=== PATIENT | male | born 1955 | race Caucasian/White ===

== ENCOUNTER 2017-07-14 19:01 | Emergency (ER) | payer OTHER ==
--- NOTE | 2017-07-14 19:31 | EDM.PDOC ---
ED HPI GENERAL MEDICAL PROBLEM - General Chief Complaint: Lower Extremity Injury/Pain Stated Complaint: POSS FOOT INJURY Time Seen by Provider: 07/14/17 19:14 Source of Information: Reports: Patient, Family () History Limitations: Reports: No Limitations - History of Present Illness INITIAL COMMENTS - FREE TEXT/NARRATIVE: The patient states that he dropped a heavy jake onto the medial aspect of his distal right tibia around 15:30 today, while at work. He was wearing work boots at the time, but sustained an abrasion to that area. He states that he applied ice to the area once he got home, but after resting it for about an hour, he found it very painful to bear weight. No prior injury to that area. The patient's PCP is Dr. Robbie Fishman. 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: 1000mg tylneol Right Ankle Pain Score (Numeric/FACES): 9 - Related Data Allergies Allergy/AdvReac Type Severity Reaction Status Date / Time No Known Allergies Allergy Verified 07/14/17 19:12 Home Meds: Home Meds Aspirin 81 mg PO DAILY 07/14/17 [History] Hydrochlorothiazide 12.5 mg PO DAILY 07/14/17 [History] Metoprolol Succinate 25 mg PO BID 07/14/17 [History] Multivitamin [Multivitamins] 1 cap PO DAILY 07/14/17 [History] Past Medical History Cardiovascular History: Reports: Hypertension Neurological History: Reports: Migraines - Past Surgical History HEENT Surgical History: Reports: Tonsillectomy GI Surgical History: Reports: Hernia, Inguinal (right) Social & Family History - Family History Family Medical History: Noncontributory - Tobacco Use Smoking Status *Q: Never Smoker Second Hand Smoke Exposure: No - Caffeine Use Caffeine Use: Reports: Coffee Other Caffeine Use: decaf occassionaly - Alcohol Use Alcohol Use History: Yes Alcohol Use Frequency: Socially - Recreational Drug Use Recreational Drug Use: No - Living Situation & Occupation Living situation: Reports: , with Spouse Occupation: Employed ([employer]) Review of Systems - Review of Systems Review Of Systems: ROS reveals no pertinent complaints other than HPI. ED EXAM, GENERAL - Physical Exam Exam: See Below Exam Limited By: No Limitations General Appearance: Alert, WD/WN, No Apparent Distress Extremities: Other (There is an abrasion measuring approximately 6 cm in diameter to the medial aspect of the distal right tibia. No associated erythema or ecchymosis. No apparent bony injury. Neurovascular status of the right lower extremity is intact.) Course - Vital Signs Last Recorded V/S: Last Vital Signs Temp 36.6 C 07/14/17 19:14 Pulse 63 07/14/17 19:14 Resp 18 07/14/17 19:14 BP 145/78 H 07/14/17 19:14 Pulse Ox 96 07/14/17 19:14 - Orders/Labs/Meds Orders: Active Orders 24 hr Category Date Time Status Tibia Fibula Rt [CR] Stat Exams 07/14/17 19:28 Taken - Re-Assessments/Exams Free Text/Narrative Re-Assessment/Exam: 07/14/17 19:45 2-view radiographs of the right tibia/fibula appear to be normal. No fracture or other visible bony injury seen. Formal read per the Radiologist pending. 07/14/17 19:47 X-ray results discussed with the patient and his . The patient is satisfied - he was just worried that there may have been a bony injury. I'm recommending that he apply a thick Band-Aid as padding if he is going to wear his boots. I recommended [id number] ibuprofen. The patient declined an offer for some here. Departure - Departure Time of Disposition: 19:48 Disposition: Home, Self-Care 01 Condition: Good Clinical Impression: Abrasion of right leg - Discharge Information Referrals: Robbie Fishman Jr, MD [Primary Care Provider] - Forms: ED Department Discharge Additional Instructions: You were seen in the emergency room after a jake struck the distal part of your right krishnan. Workup in the ER included x-rays of your tibia and fibula, which were normal. No bony injuries, fractures, or chips were seen. While it may be sore, you may bear weight on your right lower extremity. Take vsur-gea-guftina ibuprofen as needed for discomfort. Consider applying a thick Band-Aid to the area as padding if you are wearing your boots. If any other problems, please do not hesitate to return to the ER. - My Orders Last 24 Hours: My Active Orders 07/14/17 19:28 Tibia Fibula Rt [CR] Stat - Assessment/Plan Last 24 Hours: My Active Orders 07/14/17 19:28 Tibia Fibula Rt [CR] Stat
--- NOTE | 2017-07-15 07:04 | CR ---
Right tibia and fibula: Two views of the right tibia and fibula were obtained. Comparison: No prior study. No fracture or other bony abnormality is seen. Impression: 1. No abnormality is seen within the tibia or fibula. Diagnostic code #1
== END 2017-07-14 20:15 | disposition home or self-care (01) ==
LOC: JD.ED 19:01
DX: S80.811A Abrasion, right lower leg, initial encounter (principal); I10 Essential (primary) hypertension; Z79.899 Other long term (current) drug therapy; W20.8XXA Other cause of strike by thrown, projected or falling object, initial encounter
CPT/HCPCS: 73590-26-RT; 73590-RT; 99282; 99283

== ENCOUNTER 2021-01-15 14:42 | Emergency (ER) | payer BC, OTHER ==
[2021-01-15] MEDS ORDERED: Sodium Chloride 0.9% 10 ML Syringe FLUSH PRN (15:03)
[2021-01-15] MEDS ORDERED: Famotidine 20 MG/2 ML SDV IVPUSH ONE (15:03)
[2021-01-15] MEDS ORDERED: Alum Hydrox/Mag Hydrox/Simeth 30 ML, Lidocaine 2% 15 ML PO ONE ×2 (15:04)
--- NOTE | 2021-01-15 15:09 | EDM.PDOC ---
ED HPI GENERAL MEDICAL PROBLEM - General Chief Complaint: Abdominal Pain Stated Complaint: 1455 Time Seen by Provider: 01/15/21 14:50 Source of Information: Reports: Patient, RN Notes Reviewed History Limitations: Reports: No Limitations - History of Present Illness INITIAL COMMENTS - FREE TEXT/NARRATIVE: Patient is a 65-year-old male presenting to the emergency department with complaints of epigastric pain for the last 4 days. Symptoms began on Wednesday. Reports they improved yesterday morning, however by evening they had returned. He describes that pain as a "knot" in his stomach. He denies any vomiting or diarrhea, but states he does have occasional nausea. Denies acid reflux. He has not been eating much, however states when he did eat yesterday, he feels it made the pain worse. He has had pain similar to this approximately 1 month ago which he states lasted approximately 2 days and then resolved independently. Denies any previous abdominal surgeries. Does still have his gallbladder. He has had no fever, but states he does occasionally get chilled. Reports regular bowel movements. He has tried [id number] Gaviscon and Nexium without relief. Middle Abdomen Pain Score (Numeric/FACES): 9 - Related Data Allergies Allergy/AdvReac Type Severity Reaction Status Date / Time No Known Allergies Allergy Verified 01/15/21 14:52 Home Meds: Home Meds Aspirin [Aspirin EC] 81 mg PO DAILY 01/15/21 [History] Chlorthalidone 25 mg PO DAILY 01/15/21 [History] Metoprolol Succinate 50 mg PO DAILY 01/15/21 [History] Multivitamin 1 each PO DAILY 01/15/21 [History] Pantoprazole Sodium [Protonix] 40 mg PO DAILY #30 tablet. 01/15/21 [Rx] Sucralfate [Carafate] 1 gm PO ACBED 10 Days #40 tab 01/15/21 [Rx] Past Medical History Cardiovascular History: Reports: Hypertension Neurological History: Reports: Migraines - Past Surgical History HEENT Surgical History: Reports: Tonsillectomy GI Surgical History: Reports: Hernia, Inguinal Male Surgical History: Reports: Vasectomy Social & Family History - Family History Family Medical History: No Pertinent Family History - Tobacco Use Tobacco Use Status *Q: Never Tobacco User - Caffeine Use Caffeine Use: Reports: Coffee Other Caffeine Use: decaf occassionaly - Recreational Drug Use Recreational Drug Use: No - Living Situation & Occupation Living situation: Reports: , with Spouse Occupation: Employed ([employer] ED ROS GENERAL - Review of Systems Review Of Systems: Comprehensive ROS is negative, except as noted in HPI. ED EXAM, GI/ABD - Physical Exam Exam: See Below General Appearance: Alert, WD/WN, No Apparent Distress Respiratory/Chest: No Respiratory Distress, Lungs Clear, Normal Breath Sounds, No Accessory Muscle Use, Chest Non-Tender Cardiovascular: Normal Peripheral Pulses, Regular Rate, Rhythm, No Edema, No Gallop, No JVD, No Murmur, No Rub GI/Abdominal Exam: Normal Bowel Sounds, Soft, No Organomegaly, No Distention, No Abnormal Bruit, No Mass, Pelvis Stable, Tender (epigastric) Neurological: Alert, Oriented, CN II-XII Intact, Normal Cognition, Normal Gait, Normal Reflexes, No Motor/Sensory Deficits Psychiatric: Normal Affect, Normal Mood Skin Exam: Warm, Dry, Intact, Normal Color, No Rash #1 Interpretation EKG Date: 01/15/21 Time: 15:34 Rhythm: NSR Rate (Beats/Min): 60 [place]: Normal P-Wave: Present QRS: RBBB ST-T: Normal QT: Normal Course - Vital Signs Last Recorded V/S: Last Vital Signs Temp 98.2 F 01/15/21 18:20 Pulse 70 01/15/21 18:20 Resp 16 01/15/21 18:20 BP 165/92 H 01/15/21 18:20 Pulse Ox 92 L 01/15/21 18:20 - Orders/Labs/Meds Orders: Active Orders 24 hr Category Date Time Status Peripheral IV Insertion Adult [OM.PC] Stat Oth 01/15/21 15:01 Ordered Labs: Laboratory Tests 01/15/21 01/15/21 Range/Units 15:55 15:55 WBC 11.56 H (4.23-9.07) K/mm3 RBC 5.18 (4.63-6.08) M/mm3 Hgb 15.8 (13.7-17.5) gm/dl Hct 45.7 (40.1-51.0) % MCV 88.2 (79.0-92.2) fl MCH 30.5 (25.7-32.2) pg MCHC 34.6 (32.2-35.5) g/dl RDW Std Deviation 41.3 (35.1-43.9) fL Plt Count 252 (163-337) K/mm3 MPV 10.5 (9.4-12.3) fl Neut % (Auto) 76.1 H (34.0-67.9) % Lymph % (Auto) 11.2 L (21.8-53.1) % [place] % (Auto) 11.3 (5.3-12.2) % Eos % (Auto) 0.9 (0.8-7.0) Baso % (Auto) 0.3 (0.1-1.2) % Neut # (Auto) 8.81 H (1.78-5.38) K/mm3 Lymph # (Auto) 1.29 L (1.32-3.57) K/mm3 [place] # (Auto) 1.31 H (0.30-0.82) K/mm3 Eos # (Auto) 0.10 (0.04-0.54) K/mm3 Baso # (Auto) 0.03 (0.01-0.08) K/mm3 Sodium 137 (136-145) mEq/L Potassium 3.1 L (3.5-5.1) mEq/L Chloride 99 (98-107) mEq/L Carbon Dioxide 26 (21-32) mEq/L Anion Gap 15.1 H (5-15) BUN 13 (7-18) mg/dL Creatinine 1.0 (0.7-1.3) mg/dL Est Cr Clr Drug Dosing 76.04 mL/min Estimated GFR (MDRD) > 60 (>60) mL/min BUN/Creatinine Ratio 13.0 L (14-18) Glucose 111 H (70-99) mg/dL Calcium 9.4 (8.5-10.1) mg/dL Total Bilirubin 1.2 H (0.2-1.0) mg/dL AST 20 (15-37) U/L ALT 21 (16-63) U/L Alkaline Phosphatase 63 (46-116) U/L Troponin I < 0.017 (0.00-0.056) ng/mL C-Reactive Protein 0.9 (<1.0) mg/dL Total Protein 8.4 H (6.4-8.2) g/dl Albumin 4.4 (3.4-5.0) g/dl Globulin 4.0 gm/dL Albumin/Globulin Ratio 1.1 (1-2) Lipase 96 (73-393) U/L Meds: Medications Discontinued Medications Generic Name Dose Route Start Last Admin Trade Name Freq PRN Reason Stop Dose Admin Al Hydroxide/Mg Hydroxide 30 0 ml 01/15/21 15:04 01/15/21 15:46 ml/ Lidocaine HCl 15 ml PO 01/15/21 15:05 45 ml ONETIME ONE Administration Famotidine 20 mg 01/15/21 15:03 01/15/21 15:48 Famotidine 20 Mg/2 Ml Sdv IVPUSH 01/15/21 15:04 20 mg ONETIME ONE Administration Hydromorphone HCl 0.5 mg 01/15/21 16:11 01/15/21 16:21 Hydromorphone 0.5 Mg/0.5 Ml Syringe IVPUSH 01/15/21 16:12 0.5 mg ONETIME ONE Administration Sodium Chloride 100 mls @ 60 mls/hr 01/15/21 17:00 Normal Saline IV ASDIRECTED RACHEL Iopamidol 100 ml 01/15/21 16:56 01/15/21 17:26 Iopamidol 755 Mg/Ml 100 Ml Bottle IVPUSH 01/15/21 16:57 100 ml ONETIME ONE Administration Iopamidol 50 ml 01/15/21 16:56 01/15/21 17:26 Iopamidol 755 Mg/Ml 50 Ml Bottle IVPUSH 01/15/21 16:57 25 ml ONETIME ONE Administration Ondansetron HCl 4 mg 01/15/21 16:11 01/15/21 16:21 Ondansetron 4 Mg/2 Ml Sdv IVPUSH 01/15/21 16:12 4 mg ONETIME ONE Administration Pantoprazole Sodium 40 mg 01/15/21 16:11 01/15/21 16:21 Pantoprazole 40 Mg Vial IVPUSH 01/15/21 16:12 40 mg ONETIME ONE Administration Sodium Chloride 10 ml 01/15/21 15:03 01/15/21 16:21 Sodium Chloride 0.9% 10 Ml Syringe FLUSH 10 ml ASDIRECTED PRN Administration Keep Vein Open Sodium Chloride 10 ml 01/15/21 16:56 01/15/21 17:27 Sodium Chloride 0.9% 10 Ml Syringe FLUSH 01/15/21 16:57 10 ml ONETIME ONE Administration Sucralfate 1 gm 01/15/21 16:48 01/15/21 17:33 Sucralfate 1 Gm Tab PO 01/15/21 16:49 1 gm ONETIME ONE Administration - Re-Assessments/Exams Free Text/Narrative Re-Assessment/Exam: Patient is a 65-year-old male presenting to the emergency department complaints of 4-day history of epigastric pain. Symptoms had improved significantly yesterday, however by evening have returned. He describes a "knot "in his epigastrium. He has not had much of an appetite. On exam, he has localized tenderness to the epigastrium. It does not radiate. We have ordered blood work, EKG, chest x-ray, abdomen 2 view. We will give GI cocktail and Pepcid. 01/15/21 16:15 Patient still having pain after the Pepcid and GI cocktail. I have ordered Dilaudid, Zofran, and Protonix. Hematology results are pending. EKG shows no evidence of ischemia. Chest x-ray and abdomen x-ray showed no acute abnormalities. 01/15/21 16:48 Hematology significant for WBC minimally elevate 11.56, potassium 3.1, anion gap 15.1, total bili 1.2. Troponin is undetectably low. Lipase is normal. Patient is feeling much better after the medications given. Results discussed with patient. During conversation he did bring up that his father had a AAA at about his age. My suspicion for this is low, however given the family history, we will complete a CT chest abdomen pelvis with IV contrast only to assess the aorta. 01/15/21 16:52 CT scan of the abdomen pelvis shows no acute abnormalities. Results discussed with patient. Discussed that he is likely suffering from gastritis. He will be started on Carafate and Protonix. Recommend contacting his primary care provider's office tomorrow morning to set up follow-up. Discussed return precautions. Discharge instructions as documented. Departure - Departure Time of Disposition: 18:02 Disposition: Home, Self-Care 01 Condition: Good Clinical Impression: Abdominal pain Qualifiers: Abdominal location: epigastric Qualified Code(s): R10.13 - Epigastric pain - Discharge Information *PRESCRIPTION DRUG MONITORING PROGRAM REVIEWED*: No *COPY OF PRESCRIPTION DRUG MONITORING REPORT IN PATIENT MOOKIE: No Prescriptions: Sucralfate [Carafate] 1 gm PO ACBED 10 Days #40 tab Pantoprazole Sodium [Protonix] 40 mg PO DAILY #30 tablet.dr Instructions: Abdominal Pain, Adult, [id number] Referrals: Dawson Herring MD [Primary Care Provider] - Forms: ED Department Discharge Additional Instructions: You were seen in the emergency department today for upper abdominal pain for the last 3 days. Work-up included blood work, EKG, chest x-ray, abdominal x-ray, and CT of your chest abdomen pelvis to assess your aorta. Results of work-up were found to be normal. There is no evidence of any aneurysms on your aorta. We discussed, you are likely suffering from gastritis. While in the ER, received IV fluids, antacids, nausea medication, pain medication. This did improve your symptoms. You been started on Carafate and Protonix. Take these medications as prescribed. Avoid spicy, greasy or acidic foods. Call tomorrow to schedule follow-up with your primary care provider. Return to ER for any new or worsening symptoms of concern. Sepsis Event Note (ED) - Evaluation Sepsis Screening Result: No Definite Risk - Focused Exam Vital Signs: Vital Signs Temp Pulse Resp BP Pulse Ox 01/15/21 18:20 98.2 F 70 16 165/92 H 92 L 01/15/21 14:49 97.9 F 65 16 186/93 H 97 - My Orders Last 24 Hours: My Active Orders 01/15/21 15:01 Peripheral IV Insertion Adult [OM.PC] Stat - Assessment/Plan Last 24 Hours: My Active Orders 01/15/21 15:01 Peripheral IV Insertion Adult [OM.PC] Stat
--- NOTE | 2021-01-15 15:58 | CR ---
Abdomen: Supine and upright views the abdomen were obtained. Comparison: Prior abdominal x-ray of 05/14/09. Bowel gas pattern is normal. No abnormal calcifications or soft tissue abnormality is seen. No free air is seen. Slight scoliosis is noted within the spine. No abnormal calcifications or discrete soft tissue abnormality is appreciated. Impression: 1. Nothing acute is seen on 2 view abdominal x-ray. Diagnostic code #2
--- NOTE | 2021-01-15 16:00 | CR ---
Chest: PA and lateral views of the chest were obtained. Comparison: No prior chest imaging is available. Heart size and mediastinum are normal. Lungs are clear with no acute parenchymal change. Minimal pleural thickening is seen along the lateral left chest which is believed to be incidental. Bony structures appear within normal limits for the patient's age. Impression: 1. Nothing acute is seen on 2-view chest x-ray. Diagnostic code #2
[2021-01-15] MEDS ORDERED: Ondansetron 4 MG/2 ML SDV IVPUSH ONE (16:11)
[2021-01-15] MEDS ORDERED: HYDROmorphone 0.5 MG/0.5 ML Syringe IVPUSH ONE (16:11)
[2021-01-15] MEDS ORDERED: Pantoprazole 40 MG Vial IVPUSH ONE (16:11)
[2021-01-15] MEDS ORDERED: Sucralfate 1 GM Tab PO ONE (16:48)
[2021-01-15] MEDS ORDERED: Iopamidol 755 MG/ML 50 ML Bottle IVPUSH ONE (16:56)
[2021-01-15] MEDS ORDERED: Iopamidol 755 Mg/ML 100 ML Bottle IVPUSH ONE (16:56)
[2021-01-15] MEDS ORDERED: Sodium Chloride 0.9% 10 ML Syringe FLUSH ONE (16:56)
[2021-01-15] MEDS ORDERED: Sodium Chloride 0.9% 100 ML IV SCH (17:00)
--- NOTE | 2021-01-15 17:57 | CT ---
CT chest Technique: Multiple axial sections of the lung apices inferiorly through the lung bases were obtained. Intravenous contrast was utilized during the arterial phase. Reconstructed coronal and axial images were obtained Comparison: No prior chest CT is available, prior chest x-ray performed earlier on the same day (3:11 PM). Findings: Thoracic aorta shows mild atherosclerotic calcification. No aneurysm or dissection is seen. No atheromatous ulcer is seen. Pulmonary artery shows no filling defects to indicate discrete pulmonary embolism. Mediastinum shows no adenopathy. No axillary adenopathy is seen. No pericardial thickening is seen. Heart size is within normal limits. Lung window settings were reviewed. Slight pleural thickening is noted within the inferior lateral chest wall which is due to fat. Minimal dependent atelectasis is seen posteriorly within both lungs. No acute parenchymal change is seen. Bone window settings were reviewed which show no acute osseous abnormality. Impression: 1. Thoracic aorta shows mild atherosclerotic calcification. No aneurysm or dissection is seen. 2. Other findings as noted above which are felt to be incidental. Diagnostic code #2 CT abdomen and pelvis Technique: Multiple axial sections were obtained from above the dome of the diaphragm inferiorly to above the pubic symphysis. Contrast was utilized during the arterial phase. Reconstructed coronal and sagittal images were obtained. Comparison: No prior abdominal or pelvic CT is available, prior plain film abdominal x-ray performed earlier on the same day (3:13 PM). Findings: Liver contains no focal parenchymal abnormality. Gallbladder contains no calcified gallstones. Spleen size is normal. Adrenal glands show no nodule. Pancreas appears within normal limits. Kidneys show symmetric contrast enhancement. No hydronephrosis is seen. Cyst is noted within the left kidney measuring 2.6 cm. Thoracic aorta shows mild atherosclerotic change. No aneurysm or dissection is seen. No atheromatous ulcer is noted. Common, external and internal iliac arteries show no stenosis. No retroperitoneal adenopathy is seen. No mesenteric abnormalities are seen. Diverticuli are seen within the sigmoid colon with no inflammatory change. Appendix is seen which is normal in size. Bone window settings were reviewed which show vacuum disc phenomena within the L5-S1 disc. Slight vacuum phenomenon is noted within the sacroiliac joints. Impression: 1. Abdominal aorta shows atherosclerotic change without aneurysm or dissection. 2. Other findings as described above are felt to be chronic and incidental. Nothing acute is appreciated. Diagnostic code #2
== END 2021-01-15 18:22 | disposition home or self-care (01) ==
LOC: JD.ED 14:42
DX: R10.13 Epigastric pain (principal); I10 Essential (primary) hypertension; Z79.82 Long term (current) use of aspirin; Z79.899 Other long term (current) drug therapy
CPT/HCPCS: 36415; 71046; 71260; 74019; 74177; 80053; 83690; 84484; 85025; 86140; 93005; 96374; 96375; 99284; A9270; C9113; J1170; J2405; J3490; Q9967